=== PATIENT | female | born 1990 | race Caucasian/White ===

== ENCOUNTER 2017-08-04 11:51 | Emergency (ER) | payer OTHER ==
[2017-08-04 12:03] VITALS: BP 133/68; PULSE 65; TEMP 97.7; BMI 30.4
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
[2017-08-04] MEDS ORDERED: IBUPROFEN 600 MG TABLET (FP) PO ONE ×2 (13:47→13:55)
== END 2017-08-04 15:34 | disposition home or self-care (01) ==
LOC: JERFT 11:51
DX: S16.1XXA Strain of muscle, fascia and tendon at neck level, initial encounter (principal); V54.5XXA Driver of pick-up truck or van injured in collision with heavy transport vehicle or bus in traffic accident, initial encounter; Y92.414 Local residential or business street as the place of occurrence of the external cause; Y93.89 Activity, other specified; Y99.8 Other external cause status
CPT/HCPCS: 72050-TC; 84703; 99281-25

== ENCOUNTER 2018-10-05 18:00 | Inpatient (IN) | payer OTHER ==
[2018-10-05 18:42] VITALS: BMI 32.5
[2018-10-05 19:43] LABS: BASO % 0.4 % (0-2.0); EOS % 0.4 % (0-4.5); HEMATOCRIT 30.2 % (32.4-45.2); HEMOGLOBIN 10.1 GM/dL (10.7-15.3); LYMPH % 17.7 % (8-40); MCH 25.3 pg (25.7-33.7); MCHC 33.6 g/dl (32.0-36.0); MEAN CELL VOLUME 75.2 fl (80-96); MEAN PLT VOLUME 9.6 fl (7.5-11.1); MONO % 8.4 % (3.8-10.2); NEUT % 73.1 % (42.8-82.8); PLATELET COUNT 165 K/MM3 (134-434); RBC 4.01 M/mm3 (3.60-5.2); RDW 20.6 % (11.6-15.6); WHITE BLOOD COUNT 6.4 K/mm3 (4.0-10.0)
[2018-10-05 19:53] LABS: INR 0.98 (0.83-1.09); PROTHROMBIN TIME (PATIENT) 11.6 SEC (9.7-13.0)
[2018-10-05 19:55] LABS: ACTIVATED PTT 29.8 SECONDS (25.2-36.5)
[2018-10-05 20:32] LABS: ANISOCYTOSIS 2+
[2018-10-05 20:37] LABS: RETICULOCYTES 2.66 % (0.5-1.5)
[2018-10-05] MEDS ORDERED: AMPICILLIN SODIUM 2 GM VIAL ONE (20:45)
[2018-10-05] MEDS: DEXTROSE 5%-LACTATED RINGERS 1,000 ML IV SCH (20:55)
[2018-10-05] MEDS ORDERED: AMPICILLIN - 2 GM in SODIUM CHLORIDE 100 ML IVPB ONE (21:00)
[2018-10-05 21:36] LABS: URINE APPEARANCE CLEAR; URINE BILIRUBIN NEGATIVE (<2.0 mg/dL); URINE COLOR STRAW; URINE GLUCOSE (UA) NEGATIVE (NEGATIVE); URINE KETONE NEGATIVE (NEGATIVE); URINE LEUK ESTERASE NEGATIVE (NEGATIVE); URINE NITRITE NEGATIVE (NEGATIVE); URINE PROTEIN NEGATIVE (NEGATIVE); URINE UROBILINOGEN NEGATIVE mg/dL (0.2-1.0)
[2018-10-05 22:07] LABS: CREATININE 0.5 mg/dL (0.55-1.3)
[2018-10-05 22:08] LABS: CO2 21 mmol/L (21-32)
[2018-10-05] MEDS ORDERED: DINOPROSTONE 10 MG VAGINAL SUPPOSITORY VG ONE (22:15)
[2018-10-05 23:03] LABS: ANION GAP 7 MMOL/L (8-16); BLOOD UREA NITROGEN 7 mg/dL (7-18); CHLORIDE 110 mmol/L (98-107); GAMMA GLUTAMYL TRANSPEPTIDASE 8 U/L (5-85); GLUCOSE,RANDOM 67 mg/dL (74-106); SGOT/AST 15 U/L (15-37); SGPT/ALT 14 U/L (13-61); SODIUM 138 mmol/L (136-145); URIC ACID 3.1 mg/dL (2.6-7.2)
[2018-10-05] MEDS ORDERED: PROMETHAZINE HCL 25 MG/1 ML VIAL IVPB ONE (23:45)
[2018-10-05] MEDS ORDERED: BUTORPHANOL TARTRATE 1 MG/ML VIAL IVPB ONE (23:45)
[2018-10-05] MEDS ORDERED: BUTORPHANOL TARTRATE 1 MG/ML VIAL ONE ×2 (23:46)
[2018-10-05] MEDS ORDERED: PROMETHAZINE HCL 25 MG/1 ML VIAL ONE (23:46)
[2018-10-06] MEDS ORDERED: AMPICILLIN SODIUM 1 GM VIAL ONE ×3 (00:44→08:09)
[2018-10-06] MEDS: DEXTROSE 5%-LACTATED RINGERS 1,000 ML IV SCH (00:59)
[2018-10-06] MEDS: AMPICILLIN - 1 GM in SODIUM CHLORIDE 100 ML IVPB SCH ×3 (00:59→08:55)
[2018-10-06] MEDS ORDERED: ACETAMINOPHEN 325 MG TABLET (FP) ONE (03:15)
[2018-10-06] MEDS ORDERED: ACETAMINOPHEN 325 MG TABLET (FP) PO ONE (03:30)
[2018-10-06 06:50] LABS: RPR NONREACTIVE (NONREACTIVE)
[2018-10-06] MEDS ORDERED: BUTORPHANOL TARTRATE 1 MG/ML VIAL IVPB ONE (09:16)
[2018-10-06] MEDS ORDERED: PROMETHAZINE HCL 25 MG/1 ML VIAL IVPUSH ONE (09:16)
--- NOTE | 2018-10-06 09:21 | HP ---
Past Medical History - Primary Care Physician PCP:: Thalia Nieto - Admission Chief Complaint: Headache. elevated BP. IUP at 39 weeks History of Present Illness: 28 yo GP EDC 10/05 EGA 39 weeks admitted due to elevated BP and headache admitted for induction History Source: Patient - Past Medical History ...: 5 ...Para: 2 ...Term: 2 ...: 0 ...Spon : 0 ...Induced : 2 ...Multiple Gestation: 0 ...LMP: 01/05/18 ... Weeks Gestation by Dates: 39.0 ...EDC by Dates: 10/12/18 ...EDC by Sono: 10/12/18 Heme/Onc: Yes: Anemia Infectious Disease: Yes: STD's (chlamydia pos in 2007, 04/2014) - Past Surgical History Past Surgical History: Yes: None Hx Myomectomy: No Hx Transabdominal Cerclage: No - Smoking History Smoking history: Never smoked Have you smoked in the past 12 months: No - Alcohol/Substance Use Hx Alcohol Use: No History of Substance Use: reports: None - Social History Usual Living Arrangement: Yes: With Spouse History of Recent Travel: No Home Medications - Allergies Allergies/Adverse Reactions: Allergies Allergy/AdvReac Type Severity Reaction Status Date / Time No Known Allergies Allergy Verified 08/30/18 13:38 - Home Medications Home Medications: Ambulatory Orders Ferrous Sulfate 1 tab PO BID 08/30/18 Pnv No.103/Folic/Om3s/Fish Oil [ Gummies] 1 gum PO DAILY 08/30/18 Review of Systems - Review of Systems Constitutional: reports: No Symptoms Eyes: reports: No Symptoms HENT: reports: No Symptoms Neck: reports: No Symptoms Cardiovascular: reports: No Symptoms Respiratory: reports: No Symptoms Gastrointestinal: reports: No Symptoms Genitourinary: reports: No Symptoms Breasts: reports: No Symptoms Reported Musculoskeletal: reports: No Symptoms Integumentary: reports: No Symptoms Neurological: reports: Headache Endocrine: reports: No Symptoms Hematology/Lymphatic: reports: No Symptoms Psychiatric: reports: No Symptoms Physical Exam - Maternity Vital Signs: Vital Signs Temperature 98.4 F 10/06/18 08:00 Pulse Rate 76 10/06/18 08:00 Respiratory Rate 18 10/06/18 08:00 Blood Pressure 134/78 10/06/18 08:00 O2 Sat by Pulse Oximetry (%) - Labs Lab Results: CBC, BMP 10/05/18 19:33 10/05/18 18:45 Problem List - Problems (1) Headache Code(s): R51 - HEADACHE (2) 39 weeks gestation of Code(s): Z3A.39 - 39 WEEKS GESTATION OF Assessment/Plan IUP at 39 weeks gestational Hypertension Plan admit cervidil HELLP labs
--- NOTE | 2018-10-06 09:23 | PN ---
Ante-Partal Exam - Subjective Subjective: Pt with pain Vital Signs: Vital Signs Temperature 98.4 F 10/06/18 08:00 Pulse Rate 76 10/06/18 08:00 Respiratory Rate 18 10/06/18 08:00 Blood Pressure 134/78 10/06/18 08:00 O2 Sat by Pulse Oximetry (%) Bleeding: No Headache: No Visual changes: No Right upper quadrant pain: No - Contractions Contractions: Yes - Exam during Labor Category: I Monitor Decelerations: None Exam: Vaginal Amniotic Membrane Status: Intact Presentation: Vertex - Intrapartum Hemorrhage Risk Risk Score: 0 Risk Level: Low Risk - Assessment/Plan Assessment/Plan: IUP at 39 week gestational HTN plan pit aug if needed stadol continue present management
[2018-10-06] MEDS ORDERED: OXYTOCIN 30 UNITS in 0.9% NS 30 UNIT/500 ML INFUS.BAG IVPB SCH (09:30)
[2018-10-06] MEDS ORDERED: OXYTOCIN 30 UNITS in 0.9% NS 30 UNIT/500 ML INFUS.BAG IVPB ONE (09:49)
[2018-10-06] MEDS ORDERED: BUTORPHANOL TARTRATE 1 MG/ML VIAL ONE ×2 (10:36)
[2018-10-06] MEDS ORDERED: PROMETHAZINE HCL 25 MG/1 ML VIAL ONE (10:36)
[2018-10-06] MEDS ORDERED: LIDOCAINE HCL 1% PRESERVATIVE FREE - 30ML VIAL ONE (10:56)
[2018-10-06] MEDS ORDERED: OXYTOCIN 20 UNITS in 0.9% NS 20 UNIT/1,000 ML INFUS.BAG IV ONE (11:00)
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
[2018-10-06] MEDS ORDERED: BENZOCAINE 20% 57 GM BOTTLE TP PRN (11:36)
[2018-10-06] MEDS ORDERED: BENZOCAINE 28 GM HEMORRHOIDAL OINTMENT TP PRN (11:36)
[2018-10-06] MEDS ORDERED: BISACODYL 10 MG SUPP.RECT RC PRN (11:36)
[2018-10-06] MEDS ORDERED: WITCH HAZEL 50% (TUCKS) 40 PAD/JAR PAD TP PRN (11:36)
[2018-10-06] MEDS ORDERED: METHYLERGONOVINE MALEATE 0.2 MG/1 ML AMP IM PRN (11:36)
[2018-10-06] MEDS ORDERED: OXYTOCIN 20 UNITS in 0.9% NS 20 UNIT/1,000 ML INFUS.BAG IV SCH (11:45)
[2018-10-06] MEDS: IBUPROFEN 600 MG TABLET (FP) PO PRN (16:11)
[2018-10-06] MEDS: ACETAMINOPHEN 325 MG TABLET (FP) PO PRN (16:12)
[2018-10-06] MEDS: FERROUS SO4 325 MG TABLET (FP) PO SCH ×2 (16:13→18:11)
[2018-10-07 08:15] LABS: BASO % 0.3 % (0-2.0); EOS % 1.2 % (0-4.5); HEMATOCRIT 26.8 % (32.4-45.2); HEMOGLOBIN 8.8 GM/dL (10.7-15.3); MCH 24.8 pg (25.7-33.7); MEAN CELL VOLUME 75.3 fl (80-96); MEAN PLT VOLUME 9.1 fl (7.5-11.1); MONO % 9.1 % (3.8-10.2); NEUT % 64.4 % (42.8-82.8); PLATELET COUNT 144 K/MM3 (134-434); RBC 3.56 M/mm3 (3.60-5.2); RDW 20.8 % (11.6-15.6); WHITE BLOOD COUNT 5.2 K/mm3 (4.0-10.0)
--- NOTE | 2018-10-07 08:57 | PN ---
Post Progress Note - Subjective Subjective: Doing well. Hgb 8.8 this a.m. Otherwise no issues. Tolerating diet, ambulating, voiding, passing flatus. Type of Delivery: Vital Signs: Vital Signs Temperature 97.6 F 10/07/18 06:00 Pulse Rate 69 10/07/18 06:00 Respiratory Rate 18 10/07/18 06:00 Blood Pressure 134/75 10/07/18 06:00 O2 Sat by Pulse Oximetry (%) 100 10/06/18 12:00 Uterus: Yes: Fundus Firm Abdomen/GI: Yes: Abdomen soft Lochia: Yes: Rubra Lochia, amount: Small Extremities: Yes: Calves non-tender Perineum: Yes: Intact Activity: Ambulating - Labs Labs: CBC WBC 5.2 K/mm3 (4.0-10.0) 10/07/18 07:30 RBC 3.56 M/mm3 (3.60-5.2) L 10/07/18 07:30 Hgb 8.8 GM/dL (10.7-15.3) L 10/07/18 07:30 Hct 26.8 % (32.4-45.2) L 10/07/18 07:30 MCV 75.3 fl (80-96) L 10/07/18 07:30 MCH 24.8 pg (25.7-33.7) L 10/07/18 07:30 MCHC 33.0 g/dl (32.0-36.0) 10/07/18 07:30 RDW 20.8 % (11.6-15.6) H 10/07/18 07:30 Plt Count 144 K/MM3 (134-434) 10/07/18 07:30 MPV 9.1 fl (7.5-11.1) 10/07/18 07:30 Absolute Neuts (auto) 3.4 K/mm3 (1.5-8.0) 10/07/18 07:30 Neutrophils % 64.4 % (42.8-82.8) 10/07/18 07:30 Lymphocytes % 25.0 % (8-40) D 10/07/18 07:30 Monocytes % 9.1 % (3.8-10.2) 10/07/18 07:30 Eosinophils % 1.2 % (0-4.5) D 10/07/18 07:30 Basophils % 0.3 % (0-2.0) 10/07/18 07:30 Nucleated RBC % 0 % (0-0) 10/07/18 07:30 Anisocytosis 2+ 10/05/18 18:45 Retic Count 2.66 % (0.5-1.5) H 10/05/18 19:33 Haptoglobin 104 mg/dL (34-200) 10/05/18 19:33 Assessment/Plan PPD#1 s/p normal AFVSS Regular diet encourage ambulation iron and PNVs due to anemia
[2018-10-07] MEDS: FERROUS SO4 325 MG TABLET (FP) PO SCH ×3 (08:59→17:26)
[2018-10-07] MEDS: PRENATAL VITAMINS W/ FOLIC ACID TABLET (FP) PO SCH (10:48)
[2018-10-07] MEDS: IBUPROFEN 600 MG TABLET (FP) PO PRN (20:35)
[2018-10-07] MEDS: ACETAMINOPHEN 325 MG TABLET (FP) PO PRN (20:36)
[2018-10-07] MEDS ORDERED: SENNOSIDES/DOCUSATE COMBO (SENNA PLUS) TABLET (UD) PO PRN (22:00)
[2018-10-07 22:41] VITALS: TEMP 98.2
--- NOTE | 2018-10-08 06:39 | DS ---
Physical Exam-SOFTWARE TESTING SPECIALIST Vital Signs: Vital Signs Temperature 98.2 F 10/07/18 22:00 Pulse Rate 90 10/07/18 22:00 Respiratory Rate 18 10/07/18 22:00 Blood Pressure 131/81 10/07/18 22:00 O2 Sat by Pulse Oximetry (%) 100 10/06/18 12:00 Constitutional: Yes: Well Nourished, No Distress, Calm Cardiovascular: Yes: Regular Rate and Rhythm Respiratory: Yes: Regular Gastrointestinal: Yes: Normal Bowel Sounds, Soft ....Post : Yes: Uterus firm, Uterus non-tender Neurological: Yes: Alert, Oriented Labs: CBC, BMP 10/07/18 07:30 10/05/18 18:45 Delivery - Delivery Vaginal Delivery: No Problems Type of Anesthesia: None Episiotomy/Laceration: Perineal Extension/lac, 1st degree EBL (cc): 300 Delivery, Single - Stages of Labor Date 1st Stage Initiatied: 10/06/18 Time 1st Stage Initiated: 00:00 Date 2nd Stage Initiated: 10/06/18 Time 2nd Stage Initiated: 10:50 Date of Delivery: 10/06/18 Time of Delivery: 10:53 Time Placenta Delivered: 10:55 Placenta: Yes: Spontaneous - Condition of Infant Cigarette Vendor/Voice Teacher Present: No Gender: Female Weight: 6 lb 6 oz Position: Left, OA Total Hours ROM (Hrs/Mins): 40min - 1 Minute Total Score: 9 5 Minutes Total Score: 9 - Feeding Plan Initial Plan: Elected not to breastfeed exclusively throughout hospitalization Discharge Summary Reason For Visit: INDUCTION OF LABOR Current Active Problems 39 weeks gestation of (Acute) Headache (Acute) Procedures: Principal: Normal Hospital Course: Pt admitted on 10/05 for induction of labor. Underwent cervidil induction with pitocin augmentation. SHe then had an uncomplicated on 10/06/2018. THe patient had a post course complicated only by anemia. She then was discharged home on post day 2 with normal lochia rubra and Iron supplements. Condition: Good - Instructions Diet, Activity, Other Instructions: Physical activity Resume your normal everyday activity as tolerated but no heavy lifting or strenuous exercise until seen by your doctor. You may walk unlimited amounts and climb stairs. You may resume driving the car when you feel safe and comfortable behind the wheel. No sexual activity as instructed. You may shower daily, no Diet There are no dietary restrictions. Eat healthy, high-fiber foods. Drink 6 to 8 glasses of liquid each day. This will assist in keeping your bowels regular. Pain management You may take Tylenol or Ibuprofen (for example, Motrin, Advil etc.) as needed for pain. Call MD for any of the following: Severe pain not relieved by medication Fever of 101 or higher Excessive bleeding or drainage on dressing Inability to urinate Referrals: Abril Blum DO [Staff Physician] - Disposition: HOME - Home Medications Comprehensive Discharge Medication List: Ambulatory Orders Ferrous Sulfate 1 tab PO BID 08/30/18 Pnv No.103/Folic/Om3s/Fish Oil [ Gummies] 1 gum PO DAILY 08/30/18 Ferrous Sulfate [Feosol] 325 mg PO BID #60 tablet 10/07/18
[2018-10-08] MEDS: FERROUS SO4 325 MG TABLET (FP) PO SCH ×2 (09:00→12:33)
[2018-10-08] MEDS: PRENATAL VITAMINS W/ FOLIC ACID TABLET (FP) PO SCH (10:15)
[2018-10-08] MEDS: IBUPROFEN 600 MG TABLET (FP) PO PRN (10:15)
[2018-10-08] MEDS: ACETAMINOPHEN 325 MG TABLET (FP) PO PRN (10:15)
[2018-10-08 11:15] VITALS: BP 144/84; PULSE 60
== END 2018-10-08 12:15 | disposition home or self-care (01) | DRG 560 ==
LOC: JLDR 18:00 → J3W 10-06 13:49
PROVIDERS: ADMIT Obstetrics & Gynecology; ATTEND Obstetrics & Gynecology
PROC: 0HQ9XZZ Repair Perineum Skin, External Approach (ICD-10-PCS; principal; 2018-10-06)
PROC: 10E0XZZ Delivery of Products of Conception, External Approach (ICD-10-PCS; 2018-10-06)
PROC: 3E0P7VZ Introduction of Hormone into Female Reproductive, Via Natural or Artificial Opening (ICD-10-PCS; 2018-10-06)
DX: O70.0 First degree perineal laceration during delivery (principal); O13.4 Gestational [pregnancy-induced] hypertension without significant proteinuria, complicating childbirth; Z3A.39 39 weeks gestation of pregnancy; Z37.0 Single live birth
CPT/HCPCS: 36415; 59409; 71046-TC-FY; 80048; 81003; 82977; 83010; 84450; 84460; 84550; 85025; 85032; 85044; 85610; 85730; 86593; 86850; 86900; 86901; 87389

== ENCOUNTER 2020-09-12 16:22 | Emergency (ER) | payer OTHER ==
[2020-09-12 16:43] VITALS: BP 121/66; PULSE 87; TEMP 98.3; BMI 33.7
== END 2020-09-12 20:04 | disposition home or self-care (01) ==
LOC: JER 16:22
DX: Z11.52 Encounter for screening for COVID-19 (principal)
CPT/HCPCS: 99283-25; C9803; U0003